=== PATIENT | female | born 1955 | race Caucasian/White ===

== ENCOUNTER 2017-04-02 14:43 | Emergency (ER) | payer BC ==
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
[2017-04-02 15:25] VITALS: BMI 33.5
[2017-04-02 15:29] LABS: BASOPHIL 1.2 % (0-2.0); EOSINOPHIL 2.4 % (0-4.5); MCHC 32.6 g/dl (32.0-36.0); MEAN CELL VOLUME 85.8 fl (80-96); MEAN PLT VOLUME 7.2 fl (7.5-11.1); NEUTROPHILS 47.4 % (42.8-82.8); PLATELET COUNT 213 K/MM3 (134-434); RDW 13.2 % (11.6-15.6); WHITE BLOOD COUNT 4.2 K/mm3 (4.0-10.0)
[2017-04-02 15:51] LABS: ALBUMIN 3.8 g/dl (3.4-5.0); ANION GAP 10 (8-16); BILIRUBIN,TOTAL 0.3 mg/dL (0.2-1.0); CALCIUM 9.3 mg/dL (8.5-10.1); CO2 28 mmol/L (21-32); CREATININE 0.7 mg/dL (0.55-1.02); GLUCOSE,RANDOM 96 mg/dL (74-106); SGOT/AST 18 U/L (15-37); SGPT/ALT 19 U/L (12-78); TOT PROT 7.2 g/dl (6.4-8.2)
[2017-04-02 15:54] LABS: ALK PHOS 62 U/L (45-117); TROPONIN I < 0.02 ng/ml (0.00-0.05)
[2017-04-02 16:40] VITALS: BP 114/62; PULSE 78; TEMP 98.6
== END 2017-04-02 16:39 | disposition home or self-care (01) ==
LOC: JER 14:43
DX: R55 Syncope and collapse (principal); I10 Essential (primary) hypertension; E78.00 Pure hypercholesterolemia, unspecified
CPT/HCPCS: 36415; 71010-TC; 80053; 82550; 82553; 83880; 84484; 85025; 99283-25

== ENCOUNTER 2017-07-20 15:59 | Emergency (ER) | payer OTHER, BC ==
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
[2017-07-20 16:27] VITALS: BP 134/71; PULSE 65; TEMP 97.2; BMI 34.3
[2017-07-20] MEDS ORDERED: ACETAMINOPHEN 325 MG TABLET (FP) PO ONE (16:39)
[2017-07-20] MEDS ORDERED: ACETAMINOPHEN 325 MG TABLET (FP) ONE (16:45)
[2017-07-20] MEDS: SODIUM CHLORIDE 0.9% 1000 ML INFUS.BAG IV ONE ×2 (16:49→21:14)
[2017-07-20 17:03] LABS: BASOPHIL 1.3 % (0-2.0); EOSINOPHIL 2.5 % (0-4.5); MCH 28.3 pg (25.7-33.7); MCHC 33.2 g/dl (32.0-36.0); MEAN CELL VOLUME 85.1 fl (80-96); MEAN PLT VOLUME 7.8 fl (7.5-11.1); NEUTROPHILS 48.5 % (42.8-82.8); PLATELET COUNT 244 K/MM3 (134-434); RDW 14.1 % (11.6-15.6); WHITE BLOOD COUNT 4.9 K/mm3 (4.0-10.0)
[2017-07-20 17:42] LABS: URINE APPEARANCE CLEAR; URINE BILIRUBIN NEGATIVE (NEGATIVE); URINE BLOOD NEGATIVE (NEGATIVE); URINE COLOR STRAW; URINE GLUCOSE (UA) NEGATIVE (NEGATIVE); URINE KETONE NEGATIVE (NEGATIVE); URINE NITRITE NEGATIVE (NEGATIVE); URINE PROTEIN NEGATIVE (NEGATIVE); URINE UROBILINOGEN NEGATIVE mg/dL (0.2-1.0)
[2017-07-20 19:32] LABS: BASOPHIL 0.9 % (0-2.0); EOSINOPHIL 1.8 % (0-4.5); MCH 27.4 pg (25.7-33.7); MCHC 32.4 g/dl (32.0-36.0); MEAN CELL VOLUME 84.8 fl (80-96); MEAN PLT VOLUME 7.3 fl (7.5-11.1); NEUTROPHILS 54.4 % (42.8-82.8); PLATELET COUNT 233 K/MM3 (134-434); WHITE BLOOD COUNT 5.2 K/mm3 (4.0-10.0)
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
[2017-07-20 20:18] LABS: ALBUMIN 3.5 g/dl (3.4-5.0); ALK PHOS 68 U/L (45-117); ANION GAP 7 (8-16); BILIRUBIN,TOTAL 0.2 mg/dL (0.2-1.0); CALCIUM 9.1 mg/dL (8.5-10.1); CO2 24 mmol/L (21-32); CREATININE 0.6 mg/dL (0.55-1.02); GLUCOSE,RANDOM 131 mg/dL (74-106); SGPT/ALT 19 U/L (12-78); TOT PROT 7.2 g/dl (6.4-8.2)
[2017-07-20 20:48] LABS: SGOT/AST 24 U/L (15-37)
[2017-07-20 21:50] LABS: URINE LEUK ESTERASE 1+ (NEGATIVE)
--- NOTE | 2017-07-21 09:41 | EKG ---
Test Reason : Blood Pressure : / mmHG Vent. Rate : 064 BPM Atrial Rate : 064 BPM P-R Int : 168 ms QRS Dur : 082 ms QT Int : 438 ms P-R-T Axes : 043 023 004 degrees QTc Int : 451 ms NORMAL SINUS RHYTHM NORMAL ECG WHEN COMPARED WITH ECG OF 30-OCT-2015 22:54, NO SIGNIFICANT CHANGE WAS FOUND Confirmed by TEVIN HART MD ([id number]) on 07/21/2017 9:40:50 AM Referred By: Confirmed By:TEVIN HART MD
== END 2017-07-20 22:09 | disposition home or self-care (01) ==
LOC: JER 15:59
DX: Z04.1 Encounter for examination and observation following transport accident (principal); V43.52XA Car driver injured in collision with other type car in traffic accident, initial encounter; W22.11XA Striking against or struck by driver side automobile airbag, initial encounter; Y93.89 Activity, other specified; Y92.488 Other paved roadways as the place of occurrence of the external cause
CPT/HCPCS: 36415; 70450-TC; 71020-TC; 72070-TC; 72125-TC; 73030-TC-LT; 73110-TC-LT; 73130-TC-LT; 73564-TC-LT; 80053; 81003; 81015; 85025; 93005; 93010; 99281-25

== ENCOUNTER 2020-12-03 17:38 | Emergency (ER) | payer BC ==
[2020-12-03 17:46] VITALS: BP 130/54; PULSE 77; TEMP 98.1; BMI 34.9
== END 2020-12-03 18:22 | disposition home or self-care (01) ==
LOC: JERFT 17:38 → JER 17:38 → JERFT 18:22
DX: S52.501A Unspecified fracture of the lower end of right radius, initial encounter for closed fracture (principal)
CPT/HCPCS: 73110-TC-RT-FY; 73130-TC-RT-FY; 99283-25

== ENCOUNTER 2020-12-17 13:04 | Day surgery (SDC) | payer BC ==
[2020-12-11 14:03] VITALS: BMI 35.7
[2020-12-17] MEDS ORDERED: ROPIVACAINE HCL 0.5% 30ML VIAL ONE (13:42)
[2020-12-17] MEDS ORDERED: MIDAZOLAM HCL 2 MG/2 ML SINGLE DOSE VIAL ONE (13:42)
[2020-12-17] MEDS ORDERED: SEVOFLURANE 250 ML BTL ONE (13:45)
[2020-12-17] MEDS ORDERED: PROPOFOL 20 ML ONE ×4 (13:45→15:01)
[2020-12-17] MEDS ORDERED: DEXAMETHASONE SOD PHOSPHATE 4 MG/1 ML VIAL ONE (14:38)
[2020-12-17] MEDS ORDERED: ONDANSETRON 4 MG/2 ML VIAL ONE (14:38)
[2020-12-17] MEDS ORDERED: ceFAZolin SODIUM 1 GM VIAL ONE (14:38)
[2020-12-17] MEDS ORDERED: ePHEDrine SULFATE 50 MG/1 ML AMPULE ONE (15:05)
[2020-12-17] MEDS ORDERED: ONDANSETRON 4 MG/2 ML VIAL IVPUSH PRN (15:43)
[2020-12-17] MEDS ORDERED: PROMETHAZINE HCL 25 MG/1 ML VIAL IVPUSH PRN (15:43)
[2020-12-17] MEDS ORDERED: oxyCODONE HCL 5 MG TABLET PO PRN ×2 (15:43)
[2020-12-17] MEDS ORDERED: ACETAMINOPHEN 325 MG TABLET (FP) PO SCH (15:45)
[2020-12-17 16:32] VITALS: TEMP 97.6
[2020-12-17 16:59] VITALS: BP 110/69; PULSE 67
== END 2020-12-17 17:00 | disposition home or self-care (01) ==
LOC: FASU 13:04
PROVIDERS: ATTEND Orthopaedic Surgery Hand Surgery
PROC: 0PSH04Z Reposition Right Radius with Internal Fixation Device, Open Approach (ICD-10-PCS; principal; 2020-12-17 14:30)
DX: S52.571A Other intraarticular fracture of lower end of right radius, initial encounter for closed fracture (principal); X58.XXXA Exposure to other specified factors, initial encounter; Y92.9 Unspecified place or not applicable; Y93.9 Activity, unspecified
CPT/HCPCS: 25608; C1713; 73110-TC-RT-FY; 94760

== ENCOUNTER 2022-04-26 09:54 | Emergency (ER) | payer OTHER, BC ==
[2022-04-26 10:59] VITALS: BP 105/69; PULSE 55; TEMP 98.1; BMI 36.4
[2022-04-26] MEDS ORDERED: IBUPROFEN 600 MG TABLET (FP) PO ONE ×2 (11:28→11:36)
== END 2022-04-26 12:40 | disposition home or self-care (01) ==
LOC: JER 09:54 → JERFT 09:54
DX: S62.642A Nondisplaced fracture of proximal phalanx of right middle finger, initial encounter for closed fracture (principal); W01.0XXA Fall on same level from slipping, tripping and stumbling without subsequent striking against object, initial encounter
CPT/HCPCS: 73110-TC-RT-FY; 73130-TC-RT-FY; 73562-TC-LT-FY; 99284-25